=== PATIENT | female | born 1935 | race African-American/Black ===

== ENCOUNTER 2018-10-03 06:10 | Inpatient (IN) | payer MEDICARE, OTHER ==
[2018-10-03] VITALS (23 sets, daily range): BP systolic 100–154; BP diastolic 29–97
[~2018-10-03] VITALS: Ht 167.6 cm; Wt 80.7 kg
[~2018-10-03 06:10] MED LIST: ALLO300T2 PO; AMLO10TA80 PO; ASPI-1073 PO; BRIM5DRO EACHEYE; FURO-151 PO; LOVA10TA54 PO; METO-385 PO; POTA10TA15 PO; PRED5DRO7 RIGHTEYE; PRED5TAB48 PO
[2018-10-03] MEDS ORDERED: ASPIRIN/SOD BICARB/CITRIC ACID 324MG TAB EFF ONE (07:33)
[2018-10-03] MEDS ORDERED: IODIXANOL 320MG/ML 100 ML BOTTLE IV ONE (07:33)
[2018-10-03] MEDS ORDERED: LIDOCAINE HCL 1% 20ML VIAL (Pyxis) INJ ONE (07:33)
[2018-10-03] MEDS ORDERED: ASPI-986 PO (08:10)
[2018-10-03] MEDS ORDERED: ATOR40TA70 PO (08:16)
[2018-10-03] MEDS ORDERED: MIDAZOLAM HCL 2 MG/2 ML VIAL ONE (08:39)
[2018-10-03] MEDS ORDERED: FENTANYL CITRATE/PF 50MCG/ML 2ML VIAL ONE (08:39)
[2018-10-03] MEDS ORDERED: IOHEXOL-300 100 ML BOTTLE ONE (08:53)
[2018-10-03 09:10] LABS: CHLORIDE 111 mEq/L (98-107)
[2018-10-03 09:13] LABS: BASOPHILS % 0.4 % (0.0-2.0); EOSINOPHILS % 0.2 % (0.0-5.0); HEMATOCRIT. 36.8 % (36.0-48.0); HEMOGLOBIN. 11.8 g/dL (12.0-16.0); LYMPHOCYTES % 27.3 % (20.0-50.0); MEAN CORPUSCULAR HEMOGLOBIN 28.4 pg (28.0-32.0); MEAN CORPUSCULAR VOLUME 88.3 fL (81.0-99.0); MEAN PLATELET VOLUME 10.3 fl (7.4-10.4); MONOCYTES % 10.1 % (2.0-8.0); PLATELET 187 x1000/uL (130-400); RED BLOOD CELL COUNT 4.17 mill/uL (4.2-5.4); RED CELL DISTRIBUTION WIDTH 17.1 % (11.6-14.6)
[2018-10-03] MEDS ORDERED: ONDANSETRON HCL 4MG/2ML INJ IV PRN (09:30)
[2018-10-03] MEDS ORDERED: ATROPINE SULFATE 1MG/10ML SYR IV PRN (09:30)
[2018-10-03] MEDS ORDERED: MORPHINE SULFATE 4 MG/ML CPJ (NOT FOR IM USE) IV PRN (09:30)
[2018-10-03] MEDS ORDERED: ACETAMINOPHEN 325MG TABLET PO PRN (09:30)
[2018-10-03] MEDS ORDERED: SODIUM CHLORIDE 0.45% 1,000 ML IV ONE (10:30)
[2018-10-03] MEDS: METOPROLOL TARTRATE 25MG TABLET PO SCH ×2 (10:30→21:00)
[2018-10-03] MEDS ORDERED: NICARDIPINE 100MCG/ML 10ML VIAL (CATH LAB) IV ONE (14:47)
[2018-10-03] MEDS ORDERED: NITROGLYCERIN 50MCG/ML 10ML VIAL (CATH LAB) IV ONE (14:47)
[2018-10-03] MEDS ORDERED: HEPARIN SODIUM 1,000 UNIT/1ML VIAL IV ONE (16:02)
[2018-10-03] MEDS ORDERED: ATORVASTATIN CALCIUM 40MG TABLET PO SCH (21:00)
[2018-10-04] VITALS (7 sets, daily range): BP systolic 112–147; BP diastolic 53–84
[2018-10-04 03:50] LABS: BASOPHILS % 0.5 % (0.0-2.0); EOSINOPHILS % 0.5 % (0.0-5.0); HEMATOCRIT. 37.2 % (36.0-48.0); HEMOGLOBIN. 12.1 g/dL (12.0-16.0); LYMPHOCYTES % 32.6 % (20.0-50.0); MEAN CORPUSCULAR HEMOGLOBIN 28.6 pg (28.0-32.0); MEAN CORPUSCULAR VOLUME 88.3 fL (81.0-99.0); MEAN PLATELET VOLUME 9.4 fl (7.4-10.4); MONOCYTES % 11.3 % (2.0-8.0); NEUTROPHILS % 55.1 % (40.0-76.0); PLATELET 161 x1000/uL (130-400); RED BLOOD CELL COUNT 4.21 mill/uL (4.2-5.4)
[2018-10-04] MEDS: METOPROLOL TARTRATE 25MG TABLET PO SCH (08:03)
[2018-10-04] MEDS ORDERED: ASPIRIN 325MG TABLET PO SCH (09:00)
== END 2018-10-04 09:00 | disposition home or self-care (01) | DRG 287 ==
LOC: CCL 06:10 → 3WST 06:11
PROVIDERS: ADMIT Specialist; ATTEND Specialist
PROC: 4A023N7 Measurement of Cardiac Sampling and Pressure, Left Heart, Percutaneous Approach (ICD-10-PCS; principal; 2018-10-03)
PROC: B2181ZZ Fluoroscopy of Left Internal Mammary Bypass Graft using Low Osmolar Contrast (ICD-10-PCS; 2018-10-03)
PROC: B2131ZZ Fluoroscopy of Multiple Coronary Artery Bypass Grafts using Low Osmolar Contrast (ICD-10-PCS; 2018-10-03)
PROC: B2111ZZ Fluoroscopy of Multiple Coronary Arteries using Low Osmolar Contrast (ICD-10-PCS; 2018-10-03)
DX: T82.855A Stenosis of coronary artery stent, initial encounter (principal); M32.9 Systemic lupus erythematosus, unspecified; E78.5 Hyperlipidemia, unspecified; M10.9 Gout, unspecified; I49.3 Ventricular premature depolarization; I25.10 Atherosclerotic heart disease of native coronary artery without angina pectoris; I25.82 Chronic total occlusion of coronary artery; I35.0 Nonrheumatic aortic (valve) stenosis; Y83.8 Other surgical procedures as the cause of abnormal reaction of the patient, or of later complication, without mention of misadventure at the time of the procedure; Y92.89 Other specified places as the place of occurrence of the external cause; Z95.5 Presence of coronary angioplasty implant and graft; T82.9XXA Unspecified complication of cardiac and vascular prosthetic device, implant and graft, initial encounter
CPT/HCPCS: 36415; 80048; 93005; 93306; 93459; C1769; C1887; C1893; J1644; J2250; J3010; J3490; Q9967

== ENCOUNTER 2019-08-28 09:02 | Day surgery (SDC) | payer MEDICARE, OTHER ==
[2019-08-28 08:31] LABS: HEMATOCRIT 37.1 % (36.0-48.0); HEMOGLOBIN 11.8 g/dL (12.0-16.0); PLATELET 163 x1000/uL (130-400); RED BLOOD CELL COUNT 4.21 mill/uL (4.2-5.4); RED CELL DISTRIBUTION WIDTH 18.1 % (11.6-14.6)
[~2019-08-28 09:02] MED LIST changes: -AMLO10TA80 PO; -ASPI-1073 PO; +ASPI-986 PO; +ASPIRIN/SOD BICARB/CITRIC ACID 324MG TAB EFF ONE; +ATOR40TA70 PO; -BRIM5DRO EACHEYE; +FENTANYL CITRATE/PF 50MCG/ML 2ML VIAL ONE; -FURO-151 PO; +IODIXANOL 320MG/ML 100 ML BOTTLE IV ONE; +IOHEXOL-300 100 ML BOTTLE ONE; +LIDOCAINE HCL 1% 20ML VIAL (Pyxis) INJ ONE; -LOVA10TA54 PO; +MIDAZOLAM HCL 2 MG/2 ML VIAL ONE; +NICARDIPINE 100MCG/ML 10ML VIAL (CATH LAB) IV ONE; +NITROGLYCERIN 50MCG/ML 10ML VIAL (CATH LAB) IV ONE; -POTA10TA15 PO; -PRED5DRO7 RIGHTEYE
[2019-08-28] MEDS ORDERED: PANT40TA4 MT (09:06)
[2019-08-28] MEDS ORDERED: AMLO5TAB88 MT (09:06)
[2019-08-28] MEDS ORDERED: ATOR80TA MT (09:07)
[2019-08-28] MEDS ORDERED: GABA-531 PO (09:10)
[2019-08-28] MEDS ORDERED: GABA100C PO (09:12)
[2019-08-28] MEDS ORDERED: ONDANSETRON HCL 4MG/2ML INJ IV PRN (09:30)
[2019-08-28] MEDS ORDERED: ATROPINE SULFATE 1MG/10ML SYR IV PRN (09:30)
[2019-08-28] MEDS ORDERED: ACETAMINOPHEN 325MG TABLET PO PRN (09:30)
[2019-08-28] MEDS ORDERED: MORPHINE SULFATE 2 MG/ML CPJ (NOT FOR IM USE) IV PRN (09:30)
[2019-08-28] MEDS ORDERED: HEPARIN SODIUM 1,000 UNIT/1ML VIAL IV ONE (13:55)
== END 2019-08-28 14:00 | disposition home or self-care (01) ==
LOC: CCL 09:02
PROVIDERS: ATTEND Specialist
DX: I25.10 Atherosclerotic heart disease of native coronary artery without angina pectoris (principal); E78.00 Pure hypercholesterolemia, unspecified; I10 Essential (primary) hypertension; I45.10 Unspecified right bundle-branch block; I97.89 Other postprocedural complications and disorders of the circulatory system, not elsewhere classified; Z95.1 Presence of aortocoronary bypass graft; Z79.899 Other long term (current) drug therapy; Z82.49 Family history of ischemic heart disease and other diseases of the circulatory system
CPT/HCPCS: 36415; 85027; 93455; 99152; 99153; C1769; C1887; C1893; J1644; J2250; J3010; J3490; Q9967; G0500